=== PATIENT | male | born 2000 | race Caucasian/White ===

== ENCOUNTER 2024-09-09 17:11 | Emergency (ER) | payer OTHER ==
[~2024-09-09] VITALS: Ht 177.8 cm; Wt 59.0 kg
[2024-09-09] MEDS ORDERED: HYDROCODONE/APAP 5/325MG TABLET ONE (18:07)
[2024-09-09] MEDS: HYDROCODONE/APAP 5/325MG TABLET PO ONE (18:09)
[2024-09-09] MEDS ORDERED: IBUP-1953 PO (19:35)
[2024-09-09] MEDS ORDERED: HYDR-4275 PO (19:38)
[2024-09-09 19:55] VITALS: BP 139/67; TEMP 98.6; O2SAT 99
== END 2024-09-09 19:55 | disposition home or self-care (01) ==
LOC: ER 17:37
DX: S82.091A Other fracture of right patella, initial encounter for closed fracture (principal); S50.01XA Contusion of right elbow, initial encounter; M25.531 Pain in right wrist; W10.9XXA Fall (on) (from) unspecified stairs and steps, initial encounter; Y93.89 Activity, other specified; Y92.89 Other specified places as the place of occurrence of the external cause; Y99.8 Other external cause status
CPT/HCPCS: 73080-TC; 73090-TC; 73564-TC